=== PATIENT | female | born 1990 | race Caucasian/White ===

== ENCOUNTER → 2023-09-01 11:45 | Outpatient (REF) | payer BC, SELFPAY ==
[2023-09-01 12:55] LABS: % Basophils 0.4 % (0-2); % Eosinophils 0.6 % (0-6); % Immature Granulocytes 0.5 % (0-0.5); % Lymphocytes 7.8 % (20.5-51.1); % Monocytes 5.5 % (1.7-9.3); % Neutrophils 85.2 % (42.2-75.2); Absolute Basophils 0.1 10^3/uL (0-0.2); Absolute Eosinophils 0.1 10^3/uL (0-0.7); Absolute Immature Granulocytes 0.1 10^3/uL (0-0.05); Absolute Lymphocytes 1.1 10^3/uL (1.2-3.4); Absolute Monocytes 0.8 10^3/uL (0.1-0.6); Absolute Neutrophils 11.9 10^3/uL (1.4-6.5); Hematocrit 32.7 % (37.0-47.0); Hemoglobin 11.3 g/dL (12.0-16.0); Mean Corp Hgb Conc. 34.6 g/dL (33.0-37.0); Mean Corpuscular Hgb 27.3 pg (27.0-31.0); Mean Platelet Volume 11.7 fL (7.4-10.4); Nucleated Red Blood Cells % 0 %; Platelet Count 217 10^3/uL (130-400); Red Blood Cell Count 4.14 10^6/uL (4.20-5.40); Red Cell Dist. Width 14.7 % (11.5-14.5); White Blood Cell Count 13.9 10^3/uL (4.8-10.8)
[2023-09-01 18:50] LABS: Hepatitis B Surface Antigen Negative (Negative)
[2023-09-01 19:10] LABS: Hepatitis C Antibody Negative (Negative)
[2023-09-01 20:28] LABS: Rubella Positive
[2023-09-01 22:20] LABS: Urine Albumin Negative (Neg - Trace); Urine Bilirubin Negative (Negative); Urine Character Clear (Clear); Urine Color Yellow; Urine Glucose Negative (Negative); Urine Ketone 1+ (Negative); Urine Leukocyte Trace (Negative); Urine Nitrite Negative (Negative); Urine Occult Blood Negative (Negative); Urine Urobilinogen Negative (Neg - 1+); Urine pH 6.5 (5.0-9.0)
[2023-09-01 22:27] LABS: Urine Red Blood Cell None Seen /HPF (0-2); Urine Squamous Cell 0-2 /LPF (Few)
[2023-09-02 12:31] LABS: HIV Combo Negative (Negative)
[2023-09-02 16:20] LABS: Syphilis/T. pallidum Ab Reflex Negative (Negative)
== END ==
LOC: REG 11:45
PROVIDERS: ATTENDING PHYSICIAN Nurse Practitioner Family
DX: Z34.90 Encounter for supervision of normal pregnancy, unspecified, unspecified trimester (principal); Z31.438 Encounter for other genetic testing of female for procreative management
CPT/HCPCS: 36415; 80055; 81003; 81015; 84702; 86803; 86850; 86900; 86901; 87086; 87389

== ENCOUNTER 2023-10-05 23:49 | Emergency (ER) | payer OTHER, BC, SELFPAY ==
[2023-10-05 23:53] VITALS: BP 117/81
--- NOTE | 2023-10-06 00:36 | ED.GENMED ---
History of Present Illness
General
Chief Complaint: Blood and Body Fluid Exposure
Source: patient
Exam Limitations: none
Time Seen by Provider: 10/06/23 00:12
Travel History
Have you had any contact with someone who has COVID-19?: No
Do you have any symptoms of coronavirus? Fever > 100 degrees, chills, cough, shortness of breath, sore throat, loss of taste or smell, muscle aches, or headache?: No
History of Present Illness
History of Present Illness:
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 She admits that she is . She is concerned because she was changing a VIDYA drain and as she tried to reconnect it splashed in her eyes. She was wearing glasses but suspect some of it
did get in her eye. She was able to flush her eye with saline and was able to wash her face. Patient offers no current complaints. She states she is and just wanted to be checked out.
Past History
Past History
ED Past Medical History: None
ED Past Surgical History: None
Social History
Tobacco: Non-smoker
Phy Exam
Physical Exam
Physical Exam:
CONSTITUTIONAL Vital signs reviewed, Patient alert and oriented to person, place and time. Well-appearing
HEAD atraumatic, normocephalic.
EYES eyelids normal to inspection, Extraocular muscles intact, Conjunctiva normal, Sclera normal.
NECK normal range of motion, Trachea midline, no jugular venous distention.
RESP no respiratory distress
BACK No obvious deformities
UPPER EXTREMITY Gross Range of motion normal, gross motor strength normal
LOWER EXTREMITY Gross range of motion normal, Gross motor strength normal
NEURO Speech normal, No focal motor deficits include, [place] coma scale 15, Memory normal, Cranial Nerves intact to screening exam.
SKIN Skin warm, dry, and normal in color.
Course
Vital Signs
Initial and Last Documented VS:
Initial Vital Signs
Temp Pulse Resp BP Pulse Ox
98.4 F 71 18 117/81 98
10/05/23 23:53 10/05/23 23:53 10/05/23 23:53 10/05/23 23:53 10/05/23 23:53
Last Documented Vital Signs
Temp Pulse Resp BP Pulse Ox
98.4 F 71 18 117/81 98
10/05/23 23:53 10/05/23 23:53 10/05/23 23:53 10/05/23 23:53 10/05/23 23:53
MDM/Problems Addressed
MDM/Problems Addressed:
Body fluid exposure to mucosa only
*Pulse Oximetry
Patient hypoxic: no
*Critical Care Note
Total Time (30-74mins, 75-104mins- exclusive of procedures): Not Applicable
Data Reviewed
Source: patient
Prescriptions/Medications Considered But Not Given:
Considered antivirals but mucosal exposure only
Patient Management
Escalation/DeEscalation of care consider admission/obs:
Source patient was concerned for the patient. According to the RN, she is agreeable to be tested. I think is reasonable to test the source patient. Given the patient's and mucosal surface exposure, for now we will forego any antiviral
management.
ED Attending Note
-
Portions of this chart may have been created with voice recognition software.� Occasional wrong word or��sound alike� substitutions may have occurred due to the inherent limitations of voice recognition software.
Discharge Plan
Departure
Patient Disposition: Home (Routine Discharge)
Date of Disposition: 10/06/23
Time of Disposition: 00:36
Patient with high blood pressure during this ER visit?: No
Discharge Problem:
Exposure to blood or body fluid
Instructions: Blood or body fluid exposure
Prescriptions:
No Action
Vitamin Plus Low Iron 1 TABLET tablet
1 tab PO QPM 0RF
ibuprofen 600 MG tablet
600 mg PO Q4HPRN PRN (Reason: moderate pain/cramps) Qty: 90 0RF
Referrals:
Caitlyn Paz CRNP [Family Provider] -
Activity Restrictions/Additional Instructions:
Return for drainage from the eye, redness or any other concerns
Interventions
Interventions:
*Risk Screen - Suicide Last Done: 10/05/23 23:53
*General Assessment Last Done: 10/05/23 23:53
*Neglect/Abuse Screening Last Done: 10/05/23 23:53
ED- Fall Risk Assessment Last Done: 10/06/23 00:00
*ED COVID-19 Vaccine History Last Done: 10/05/23 23:53
ED-EENT Assessment Last Done: 10/05/23 23:59
ED-Skin Assessment Last Done: 10/05/23 23:59
== END 2023-10-06 00:50 | disposition home or self-care (01) ==
LOC: EMR 23:49
PROVIDERS: EMERGENCY PHYSICIAN Emergency Medicine; FAMILY PHYSICIAN Family Medicine
DX: O26.899 Other specified pregnancy related conditions, unspecified trimester (principal); Z3A.00 Weeks of gestation of pregnancy not specified; Z77.21 Contact with and (suspected) exposure to potentially hazardous body fluids; Y93.F9 Activity, other caregiving; Y92.89 Other specified places as the place of occurrence of the external cause; Y99.0 Civilian activity done for income or pay
CPT/HCPCS: 99282

== ENCOUNTER → 2023-10-06 07:59 | Outpatient (REF) | payer OTHER, SELFPAY ==
[2023-10-06 11:57] LABS: Hepatitis B Surface Antigen Negative (Negative)
[2023-10-06 12:07] LABS: HIV Combo Negative (Negative)
[2023-10-06 12:14] LABS: Hepatitis B Surface Antibody Positive; Hepatitis C Antibody Negative (Negative)
== END ==
LOC: OHS 07:59
PROVIDERS: ATTENDING PHYSICIAN Nurse Practitioner Adult Health
DX: Z57.8 Occupational exposure to other risk factors (principal)
CPT/HCPCS: 36415; 86706; 86803; 87340; 87389

== ENCOUNTER → 2023-10-14 07:04 | Outpatient (REF) | payer BC, SELFPAY | LOC: PNTC 07:04 | PROVIDERS: ATTENDING PHYSICIAN Obstetrics & Gynecology | DX: Z36.0 Encounter for antenatal screening for chromosomal anomalies (principal) | CPT/HCPCS: 36415; 76801; 76813 ==

== ENCOUNTER → 2023-12-12 07:34 | Outpatient (REF) | payer BC, SELFPAY ==
[2023-12-14 15:24] LABS: AFP Multiple of Median (MoM) 1.02; Dating LMP CONF by US; Maternal Age at Delivery 32.6 yr; Maternal Screen Interpretation Screen Neg; Maternal Weight 160.0 lbs.; Number of Fetuses Singleton; Patient's AFP Concentration 78 ng/mL
== END ==
LOC: REG 07:34
PROVIDERS: ATTENDING PHYSICIAN Obstetrics & Gynecology; FAMILY PHYSICIAN Family Medicine
DX: Z34.90 Encounter for supervision of normal pregnancy, unspecified, unspecified trimester (principal)
CPT/HCPCS: 36415; 82105

== ENCOUNTER → 2024-01-05 07:27 | Outpatient (REF) | payer BC, SELFPAY ==
[2024-01-05 09:29] LABS: % Basophils 0.7 % (0-2); % Immature Granulocytes 1.3 % (0-0.5); % Lymphocytes 17.6 % (20.5-51.1); % Monocytes 6.2 % (1.7-9.3); % Neutrophils 71.2 % (42.2-75.2); Absolute Basophils 0.1 10^3/uL (0-0.2); Absolute Eosinophils 0.3 10^3/uL (0-0.7); Absolute Immature Granulocytes 0.1 10^3/uL (0-0.05); Absolute Lymphocytes 1.6 10^3/uL (1.2-3.4); Absolute Monocytes 0.6 10^3/uL (0.1-0.6); Absolute Neutrophils 6.4 10^3/uL (1.4-6.5); Hematocrit 32.6 % (37.0-47.0); Hemoglobin 10.4 g/dL (12.0-16.0); Mean Corp Hgb Conc. 31.9 g/dL (33.0-37.0); Mean Corpuscular Hgb 27.2 pg (27.0-31.0); Mean Corpuscular Volume 85.3 fL (81.0-99.0); Mean Platelet Volume 11.6 fL (7.4-10.4); Nucleated Red Blood Cells % 0 %; Platelet Count 180 10^3/uL (130-400); Red Blood Cell Count 3.82 10^6/uL (4.20-5.40); Red Cell Dist. Width 13.3 % (11.5-14.5); White Blood Cell Count 8.9 10^3/uL (4.8-10.8)
[2024-01-05 10:29] LABS: 1 Hour after 50gm 154 mg/dl
[2024-01-06 15:45] LABS: Syphilis/T. pallidum Ab Reflex Negative (Negative)
== END ==
LOC: REG 07:27
PROVIDERS: ATTENDING PHYSICIAN Obstetrics & Gynecology; FAMILY PHYSICIAN Family Medicine
DX: Z13.1 Encounter for screening for diabetes mellitus (principal); Z34.82 Encounter for supervision of other normal pregnancy, second trimester
CPT/HCPCS: 36415; 82950; 85025; 86780

== ENCOUNTER → 2024-01-13 14:29 | Outpatient (REF) | payer BC, SELFPAY | LOC: PNTC 14:29 | PROVIDERS: ATTENDING PHYSICIAN Obstetrics & Gynecology | DX: O98.519 Other viral diseases complicating pregnancy, unspecified trimester (principal); U07.1 COVID-19; Z86.16 Personal history of COVID-19; Z34.82 Encounter for supervision of other normal pregnancy, second trimester | CPT/HCPCS: 36415; 76816; 82951 ==

== ENCOUNTER → 2024-01-28 09:55 | Outpatient (REF) | payer BC, SELFPAY | LOC: PNTC 09:55 | PROVIDERS: ATTENDING PHYSICIAN Obstetrics & Gynecology | DX: O36.0121 Maternal care for anti-D [Rh] antibodies, second trimester, fetus 1 (principal) | CPT/HCPCS: 36415; 86850; 86900; 86901; J2790 ==

== ENCOUNTER → 2024-02-23 07:53 | Outpatient (REF) | payer BC, SELFPAY | LOC: PNTC 07:53 | PROVIDERS: ATTENDING PHYSICIAN Obstetrics & Gynecology | DX: O98.519 Other viral diseases complicating pregnancy, unspecified trimester (principal); Z86.16 Personal history of COVID-19; Z34.82 Encounter for supervision of other normal pregnancy, second trimester | CPT/HCPCS: 76816 ==

== ENCOUNTER → 2024-04-07 11:52 | Outpatient (REF) | payer BC, SELFPAY | LOC: PNTC 11:52 | PROVIDERS: ATTENDING PHYSICIAN Student in an Organized Health Care Education/Training Program | DX: O36.8190 Decreased fetal movements, unspecified trimester, not applicable or unspecified (principal) | CPT/HCPCS: 59025; 76815 ==

== ENCOUNTER 2024-04-15 19:28 | Inpatient (IN) | payer BC, SELFPAY ==
[2024-04-15 19:34] VITALS: BMI 29.6
[2024-04-15 20:10] VITALS: BP 119/79
[2024-04-15 20:23] LABS: Hematocrit 30.4 % (37.0-47.0); Hemoglobin 9.9 g/dL (12.0-16.0); Mean Corp Hgb Conc. 32.6 g/dL (33.0-37.0); Mean Corpuscular Hgb 24.9 pg (27.0-31.0); Mean Corpuscular Volume 76.4 fL (81.0-99.0); Mean Platelet Volume 12.1 fL (7.4-10.4); Platelet Count 168 10^3/uL (130-400); Red Blood Cell Count 3.98 10^6/uL (4.20-5.40); Red Cell Dist. Width 14.8 % (11.5-14.5); White Blood Cell Count 12.7 10^3/uL (4.8-10.8)
[2024-04-15 20:50] LABS: Absolute Neutrophils -Man Diff 4.6 10^3/uL (1.4-6.5); Atypical Lymphocytes 13 %; Band Neutrophils 1 % (0-3); Lymphocytes 42 % (20-51); Monocytes 8 % (2-9); Normal RBC Morphology Yes; Platelets Checked Yes; Segmented Neutrophils 36 % (42-75); Total Cells Counted 100
[2024-04-15] MEDS: CYTOTEC 25 MICROGRAM VAG (21:09)
[2024-04-16] MEDS: LR 1000 IV ×3 (01:00→08:00)
[2024-04-16] MEDS: PITOCIN 30 UNITS/NSS 500 ML IV ×2 (05:37→09:27)
[2024-04-16] MEDS: SUBLIMAZE 100 MCG EPIDURAL (06:49)
[2024-04-16] MEDS: FENTANYL/BUPIVACAINE 100 EPIDURAL (06:50)
[2024-04-16] MEDS: MOTRIN 600 MG PO ×2 (10:49→20:29)
[2024-04-16] MEDS: SENOKOT-S 1 TABLET PO (10:50)
[2024-04-16] MEDS: TYLENOL 650 MG PO ×2 (10:50→20:29)
[2024-04-17 05:42] LABS: Hematocrit 29.1 % (37.0-47.0); Hemoglobin 9.6 g/dL (12.0-16.0)
[2024-04-17] MEDS: SENOKOT-S 1 TABLET PO (09:09)
[2024-04-17] MEDS: PRENATAL PLUS 1 TABLET PO (09:09)
[2024-04-17] MEDS: TYLENOL 650 MG PO (11:10)
[2024-04-17] MEDS: MOTRIN 600 MG PO (11:11)
[2024-04-17] MEDS: RHOGAM 300 MCG IM (12:06)
[2024-04-17] MEDS: PREPARATION H MAX STRENGTH PAIN RELIEF CREAM 1 APPLIC RECTAL (12:30)
[2024-04-20 11:18] LABS: Syphilis/T. pallidum Ab Reflex Negative (Negative)
== END 2024-04-17 14:02 | disposition home or self-care (01) | DRG 807 ==
LOC: LDRP 19:28
PROVIDERS: ADMITTING PHYSICIAN Student in an Organized Health Care Education/Training Program; ATTENDING PHYSICIAN Obstetrics & Gynecology; FAMILY PHYSICIAN Obstetrics & Gynecology
PROC: 0KQM0ZZ Repair Perineum Muscle, Open Approach (ICD-10-PCS; 2024-04-16)
PROC: 10E0XZZ Delivery of Products of Conception, External Approach (ICD-10-PCS; 2024-04-16)
PROC: 3E0234Z Introduction of Serum, Toxoid and Vaccine into Muscle, Percutaneous Approach (ICD-10-PCS; 2024-04-17)
DX: O62.3 Precipitate labor (principal); Z37.0 Single live birth; O70.1 Second degree perineal laceration during delivery; Z3A.39 39 weeks gestation of pregnancy; O90.81 Anemia of the puerperium; D64.9 Anemia, unspecified
CPT/HCPCS: 85014; 85018; 85025; 85461; 86780; 86850; 86870; 86900; 86901; J2790

== ENCOUNTER 2024-04-18 20:04 | Emergency (ER) | payer BC, SELFPAY ==
[2024-04-18 20:22] VITALS: BP 118/70
--- NOTE | 2024-04-18 20:35 | ED.GENMED ---
History of Present Illness
General
Chief Complaint: Bowel Problem
Source: patient
Exam Limitations: none
Time Seen by Provider: 04/18/24 20:16
History of Present Illness
History of Present Illness:
This is 33 year old female that comes in with c/o hemorrhoids. States that she delivered on the 4th and she has hemorrhoids before she left. States that she has been using Witch citlali, and Anusol and she feels that they are worse or she has a
prolapsed rectum. Denies any fever, chills, chest pain, SOB, abd pain, nausea, vomiting, diarrhea, headache, dizziness, urinary burning.
Past History
Past History
ED Past Medical History: Asthma, Hypercholesterolemia and Psychiatric (Anxiety, Depression)
ED Past Surgical History: None
Social History
Tobacco: Non-smoker
Alcohol: None
Personal:
Living: with family
Review of Systems
Review of Systems
All Other Systems: ROS reviewed and negative except as documented in HPI and ROS
Constitutional: Reports no symptoms; Denies fever or chills
EENT: Reports no symptoms
Respiratory: Reports no symptoms; Denies cough or trouble breathing
Cardiac: Reports no symptoms; Denies chest pain
ABD/GI: Reports other (external hemorrhoids); Denies abdominal pain, nausea, vomiting or diarrhea
: Reports no symptoms; Denies dysuria, frequency or urgency
Musculoskeletal: Reports no symptoms
Skin: Reports no symptoms
Neurological: Reports no symptoms; Denies dizzy or headache
Psychiatric: Reports no symptoms
Phy Exam
General Physical Exam
General Presentation: well appearing and no apparent distress
General age: appears stated age
General Skin: warm and dry
General Habitus: normal
General Mental: alert
General Hydration: appears well hydrated
ENT Exam
ENT Exam: TM's normal, pharynx normal and neck supple
Eye Exam
Eye Exam: EOMI
Cardiovascular Exam
Cardiovascular Exam: regular rate/rhythm, no edema, no murmur and normal peripheral pulses
Pulmonary Exam
Pulmonary Exam: lungs clear, no respiratory distress, no rales, chest non tender, no crackles, no rhonchi, no wheezing and no cough
Gastrointestinal Exam
Gastrointestinal Exam: other (Large external hemorrhoid's noted )
Musculoskeletal Exam
Musculoskeletal Exam: full ROM and no edema
Skin Exam
Skin Exam: normal color, warm/dry, no rash and no petechia
Psychiatric Exam
Psychiatric Exam: normal mood/affect
Course
Vital Signs
Initial and Last Documented VS:
Initial Vital Signs
Temp Pulse Resp BP Pulse Ox
98.1 F 73 18 118/70 98
04/18/24 20:22 04/18/24 20:22 04/18/24 20:22 04/18/24 20:22 04/18/24 20:22
Last Documented Vital Signs
Temp Pulse Resp BP Pulse Ox
98.1 F 73 18 118/70 98
04/18/24 20:22 04/18/24 20:22 04/18/24 20:22 04/18/24 20:22 04/18/24 20:22
MDM/Problems Addressed
Differential Diagnosis Includes:
hemorrhoids,
MDM/Problems Addressed:
This is a 33 year old female that comes in with c/o rectal pain due to Hemorrhoids.
Explained to patient that she needs to do Sitz baths 3-4 times daily for 20min. Patient to also get a Donut to sit on and will give patient Colorectal for follow up. Will have her continue with TUCKS.
Chronic conditions affecting care:
Hemorrhoids
Acute Exacerbation and/or Progression of Chronic Illness:
Hemorrhoids
*Pulse Oximetry
Patient hypoxic: no
*EKG
Interpreted by ED Provider?: NA
Rate: EKG- N/A
*Surgical Tech Interpretation
Rate: Surgical Tech- N/A
*Critical Care Note
Total Time (30-74mins, 75-104mins- exclusive of procedures): Not Applicable
ED Attending Note
-
Portions of this chart may have been created with voice recognition software.� Occasional wrong word or��sound alike� substitutions may have occurred due to the inherent limitations of voice recognition software.
Discharge Plan
Departure
Patient Disposition: Home (Routine Discharge)
Date of Disposition: 04/18/24
Time of Disposition: 20:44
Patient with high blood pressure during this ER visit?: No
Condition: Good
Covid-19: Not Applicable
Discharge Problem:
Hemorrhoids
Instructions: How to Do a Sitz Bath, Hemorrhoids ED
Prescriptions:
New
hydrocortisone acetate [Anucort-HC] 25 mg suppository
25 mg [place] BID Qty: 24 0RF
No Action
Vitamin Plus Low Iron 1 TABLET tablet
1 tab PO QPM 0RF
acetaminophen 325 mg Tablet
650 mg PO Q4HPRN PRN (Reason: mild pain) Qty: 0 0RF
sennosides-docusate sodium 8.6-50 mg Tablet
1 tab PO DAILYPRN PRN (Reason: constipation) Qty: 0 0RF
ibuprofen 600 mg Tablet
600 mg PO Q6HPRN PRN (Reason: moderate pain/cramps) Qty: 40 0RF
Referrals:
Kenton Waller MD [Active] - Follow up in 2-3 days
Activity Restrictions/Additional Instructions:
As discussed, this is external hemorrhoids. Please do sitz baths 3-4 times daily for 20 min. You have also had a Prescription sent to your Pharmacy for Anusol suppository that will help decrease the pain and swelling. Please follow up with the
Colorectal specialist for further evaluation. Please increase your water intake to 8-8oz glasses daily. You may also use Colace to help keep the stool soft so there is no straining. You may also wish to buy a Donut to sit on as this decreases the
pressure on the rectum. You may also use Tylenol 1000mg every 6 hours and ibuprofen 600mg every 6 hours with food for pain. IF YOU HAVE INCREASED OR CHANGING PAIN, OR YOU HAVE ANY OTHER CONCERNS PLEASE RETURN TO THE EMERGENCY ROOM .
Interventions
Interventions:
*Risk Screen - Suicide Last Done: 04/18/24 20:22
*General Assessment Last Done: 04/18/24 20:22
*Neglect/Abuse Screening Last Done: 04/18/24 20:22
ED- Fall Risk Assessment Last Done: 04/18/24 20:28
*ED COVID-19 Vaccine History Last Done: 04/18/24 20:28
YC-Ioxlhe-Jntxcroekt Assessment Last Done: 04/18/24 20:28
Discharge Date and Time
Print Language: PASHTO
== END 2024-04-18 21:18 | disposition home or self-care (01) ==
LOC: EMR 20:04
PROVIDERS: EMERGENCY PHYSICIAN Student in an Organized Health Care Education/Training Program; FAMILY PHYSICIAN Family Medicine
DX: K64.9 Unspecified hemorrhoids (principal)
CPT/HCPCS: 99282

== ENCOUNTER 2024-07-05 07:24 | Outpatient (RCR) | payer BC, SELFPAY | END 2024-07-05 23:59 | disposition home or self-care (01) | LOC: RPT 07:24 | PROVIDERS: ATTENDING PHYSICIAN Obstetrics & Gynecology | DX: N39.3 Stress incontinence (female) (male) (principal); N39.41 Urge incontinence; K59.00 Constipation, unspecified; Z73.6 Limitation of activities due to disability | CPT/HCPCS: 97014; 97112; 97140; 97162; 97530 ==

== ENCOUNTER 2024-08-09 07:04 | Outpatient (RCR) | payer BC, SELFPAY | END 2024-08-09 23:59 | disposition home or self-care (01) | LOC: RPT 07:04 | PROVIDERS: ATTENDING PHYSICIAN Obstetrics & Gynecology | DX: N39.3 Stress incontinence (female) (male) (principal); N39.41 Urge incontinence; K59.00 Constipation, unspecified; Z73.6 Limitation of activities due to disability | CPT/HCPCS: 97140; 97530 ==

== ENCOUNTER 2024-08-23 06:54 | Outpatient (RCR) | payer BC, SELFPAY | END 2024-09-06 23:59 | disposition home or self-care (01) | LOC: RPT 06:54 | PROVIDERS: ATTENDING PHYSICIAN Obstetrics & Gynecology | DX: N39.3 Stress incontinence (female) (male) (principal); N39.41 Urge incontinence; K59.00 Constipation, unspecified; Z73.6 Limitation of activities due to disability | CPT/HCPCS: 97014; 97112; 97140; 97530 ==

== ENCOUNTER 2024-10-04 09:50 | Outpatient (RCR) | payer BC, SELFPAY | END 2024-10-04 23:59 | disposition home or self-care (01) | LOC: RPT 09:50 | PROVIDERS: ATTENDING PHYSICIAN Obstetrics & Gynecology | DX: N39.3 Stress incontinence (female) (male) (principal); N39.41 Urge incontinence; K59.00 Constipation, unspecified; Z73.6 Limitation of activities due to disability | CPT/HCPCS: 97014; 97112; 97140; 97530 ==

== ENCOUNTER → 2024-10-27 07:32 | Outpatient (REF) | payer BC, SELFPAY ==
[2024-10-27 08:50] LABS: % Immature Granulocytes 0.3 % (0-0.5); % Lymphocytes 43.2 % (20.5-51.1); % Monocytes 6.5 % (1.7-9.3); Absolute Basophils 0.1 10^3/uL (0-0.2); Absolute Eosinophils 0.3 10^3/uL (0-0.7); Absolute Lymphocytes 2.7 10^3/uL (1.2-3.4); Absolute Monocytes 0.4 10^3/uL (0.1-0.6); Absolute Neutrophils 2.7 10^3/uL (1.4-6.5); Hematocrit 38.7 % (37.0-47.0); Hemoglobin 12.6 g/dL (12.0-16.0); Mean Corp Hgb Conc. 32.6 g/dL (33.0-37.0); Mean Corpuscular Hgb 26.5 pg (27.0-31.0); Mean Corpuscular Volume 81.3 fL (81.0-99.0); Mean Platelet Volume 11.8 fL (7.4-10.4); Nucleated Red Blood Cells % 0 %; Platelet Count 158 10^3/uL (130-400); Red Blood Cell Count 4.76 10^6/uL (4.20-5.40); Red Cell Dist. Width 12.7 % (11.5-14.5); White Blood Cell Count 6.1 10^3/uL (4.8-10.8)
[2024-10-27 09:49] LABS: ALT (SGPT) 15 U/L (0-35); AST (SGOT) 20 U/L (14-36); Albumin 4.2 g/dl (3.5-5.0); Alkaline Phosphatase 85 U/L (38-126); Blood Urea Nitrogen 24 mg/dl (7-17); Calcium 9.7 mg/dl (8.4-10.2); Carbon Dioxide 29 mmol/L (22-30); Chloride 104 mmol/L (98-107); Glucose 75 mg/dl (70-99); HDL Cholesterol 88 mg/dl; LDL Cholesterol, Calculated 93 mg/dl; Potassium 4.1 mmol/L (3.5-5.1); Sodium 140 mmol/L (135-145); Total Bilirubin 0.5 mg/dl (0.2-1.3); Total Cholesterol 190 mg/dl (50-199); Total Protein 6.9 g/dl (6.3-8.2); Triglyceride 49 mg/dl (10-149); Very Low Density Lipoprotein 9 mg/dl (0-30); eGFR > 60.00
[2024-10-27 10:16] LABS: Free T4 1.41 ng/dl (0.78-2.19)
[2024-10-27 10:22] LABS: Glycohemoglobin (HgbA1c) 5.3 % (4.0-5.6)
== END ==
LOC: REG 07:32
DX: E78.5 Hyperlipidemia, unspecified (principal); D50.9 Iron deficiency anemia, unspecified; R53.83 Other fatigue
CPT/HCPCS: 36415; 80053; 80061; 83036; 84439; 84443; 85025

== ENCOUNTER 2025-05-08 23:25 | Emergency (ER) | payer BC, SELFPAY ==
[2025-05-08 23:27] VITALS: BP 120/82
[2025-05-08 23:39] VITALS: BMI 25.8
--- NOTE | 2025-05-09 00:33 | ED.GENMED ---
History of Present Illness
General
Chief Complaint: Blood and Body Fluid Exposure
Source: patient
Exam Limitations: none
Time Seen by Provider: 05/09/25 00:26
History of Present Illness
History of Present Illness:
See MDM
Past History
Past History
ED Past Medical History: Asthma, Hypercholesterolemia and Psychiatric (Anxiety, Depression)
ED Past Surgical History: None
Social History
Tobacco: Non-smoker
Alcohol: None
Personal:
Living: with family
Phy Exam
Physical Exam
Physical Exam:
See MDM
Course
Orders/Labs/Results
Orders:
Orders
05/09/25 00:31
Pt has had a significant HIV exposure? Routine
HIV Exposure is significant?: No
HIV Combo Urgent
Hepatitis B Surface Antibody Urgent
Hepatitis B Surface Antigen Urgent
Hepatitis C Antibody Urgent
Vital Signs
Initial and Last Documented VS:
Initial Vital Signs
Temp Pulse Resp BP Pulse Ox
97.8 F 84 18 120/82 98
05/08/25 23:27 05/08/25 23:27 05/08/25 23:27 05/08/25 23:27 05/08/25 23:27
Last Documented Vital Signs
Temp Pulse Resp BP Pulse Ox
97.8 F 84 18 120/82 98
05/08/25 23:27 05/08/25 23:27 05/08/25 23:27 05/08/25 23:27 05/08/25 23:27
MDM/Problems Addressed
Differential Diagnosis Includes:
Note:
CHIEF COMPLAINT(S)
Needle stick injury to the left index finger.
HISTORY OF PRESENT ILLNESS
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 The needle was small gauge, resulting in a minimal puncture wound. She reports minimal bleeding and
immediate application of alcohol to the area. The incident occurred when she felt like she grazed the needle against her finger while holding it. There are no additional symptoms or complaints.
PHYSICAL EXAM
General: Alert, no acute distress.
Skin: Warm, dry.
Head: Normocephalic, atraumatic
Neck: Appears supple, trachea midline.
Eyes, Ears, Nose, Mouth, and Throat: Moist mucous membranes
Cardiovascular: No signs of cyanosis
Respiratory: Respirations are non-labored.
Abdomen: Non-distended
Musculoskeletal: Very minimal puncture wound to the left index finger.
Neurological: No focal neurological deficit observed.
Psychiatric: Cooperative, appropriate mood and affect.
PLAN
- Conduct blood work to assess for potential exposure to hepatitis and HIV.
- Consider prophylactic medication for bloodborne pathogen exposure.
- Proceed with discharge once lab work is complete.
SUMMARY OF ENCOUNTER
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 Due to the risk of exposure to bloodborne pathogens, blood work will be conducted to assess for hepatitis and HIV. The patient
is to be discharged following completion of the lab work.
DISPOSITION
Discharge
MEDICAL DECISION MAKING
- Number and Complexity of Problems Addressed:
- Blood exposure risk due to needle stick injury.
- Differential Diagnosis includes, in no particular order and is not limited to:
1. Acute stress reaction
2. Exposure to bloodborne pathogens
3. Localized infection at injury site
4. Hepatitis B exposure
5. Hepatitis C exposure
6. HIV exposure
7. Tetanus exposure
8. Contact dermatitis
9. Risk of seroconversion
10. Local inflammation secondary to needle puncture
- Data:
- Category 1: Blood work ordered for assessment of exposure to bloodborne pathogens.
- Risk:
- Prescription medication for prophylaxis against bloodborne pathogens considered.
DIAGNOSIS
- Needle stick injury with potential bloodborne pathogen exposure [ICD-10 code: Z20.2]
- Occupational exposure to potentially infectious material [ICD-10 code: Z57.9]
Disposition:
SUMMARY OF ENCOUNTER
The patient, a nurse, presented with a small needle stick injury to her left index finger. The injury occurred during a blood exposure episode while administering medication to a patient. There is a concern for potential exposure to bloodborne
pathogens like hepatitis B, hepatitis C, and HIV. Blood work has been ordered to assess this exposure. Despite being offered prophylactic medication, the patient, who is currently , declined the medication both due to potential
intolerance and personal choice. The source patient is expected to provide blood work as well.
DISPOSITION
Discharge
PLAN
Conduct blood work to assess potential exposure to hepatitis B, hepatitis C, and HIV. Discharge after lab work is completed, with plans to follow up on lab results.
MEDICATION RECONCILIATION
Prophylactic medication for potential bloodborne pathogen exposure was considered but ultimately declined by the patient.
MEDICAL DECISION MAKING
- Complexity of Data Reviewed:
- Blood exposure risk due to needle stick injury.
- Differential Diagnosis includes:
1. Acute stress reaction
2. Exposure to bloodborne pathogens
3. Localized infection at injury site
4. Hepatitis B exposure
5. Hepatitis C exposure
6. HIV exposure
7. Tetanus exposure
8. Contact dermatitis
9. Risk of seroconversion
10. Local inflammation secondary to needle puncture
- Data:
Category 1: Blood work ordered for assessment of exposure to bloodborne pathogens.
- Risk: Prescription drug management was considered but declined by the patient. Discharge was chosen as the patients symptoms were well controlled, and she is reliable for follow-up.
DIAGNOSIS
- Needle stick injury with potential bloodborne pathogen exposure [ICD-10 code: Z20.2]
- Occupational exposure to potentially infectious material [ICD-10 code: Z57.9]
*Pulse Oximetry
SaO2: 98
Oxygen Mode of Delivery: Room air
Patient hypoxic: no
*Critical Care Note
Total Time (30-74mins, 75-104mins- exclusive of procedures): Not Applicable
ED Attending Note
-
Portions of this chart may have been created with voice recognition software.� Occasional wrong word or��sound alike� substitutions may have occurred due to the inherent limitations of voice recognition software.
Discharge Plan
Departure
Patient Disposition: Home (Routine Discharge)
Date of Disposition: 05/09/25
Time of Disposition: 00:34
Patient with high blood pressure during this ER visit?: No
Discharge Problem:
Employee exposure to blood
Prescriptions:
No Action
Vitamin Plus Low Iron 1 TABLET tablet
1 tab PO QPM 0RF
acetaminophen 325 mg Tablet
650 mg PO Q4HPRN PRN (Reason: mild pain) Qty: 0 0RF
sennosides-docusate sodium 8.6-50 mg Tablet
1 tab PO DAILYPRN PRN (Reason: constipation) Qty: 0 0RF
ibuprofen 600 mg Tablet
600 mg PO Q6HPRN PRN (Reason: moderate pain/cramps) Qty: 40 0RF
hydrocortisone acetate [Anucort-HC] 25 mg suppository
25 mg [place] BID Qty: 24 0RF
Referrals:
GOLDMAN,SHARI [Other]
Stand Alone Forms: Bl/Fluid Consent/Declination, Blood Body/Fluid Exposure
Interventions
Interventions:
*Risk Screen - Suicide Last Done: 05/08/25 23:27
*General Assessment Last Done: 05/08/25 23:39
*Neglect/Abuse Screening Last Done: 05/08/25 23:27
*ED- Fall Risk Assessment Last Done: 05/08/25 23:39
*ED COVID-19 Vaccine History Last Done: 05/08/25 23:39
*ED Influenza Vaccine History Last Done: 05/08/25 23:39
ED-EENT Assessment Last Done: 05/08/25 23:40
ED-Skin Assessment Last Done: 05/08/25 23:41
Discharge Date and Time
Print Language: ESTONIAN
[2025-05-09 02:54] LABS: Hepatitis B Surface Antigen Negative (Negative)
[2025-05-09 03:11] LABS: Hepatitis C Antibody Negative (Negative)
== END 2025-05-09 01:12 | disposition home or self-care (01) ==
LOC: EMR 23:25
PROVIDERS: EMERGENCY PHYSICIAN Student in an Organized Health Care Education/Training Program
DX: S61.231A Puncture wound without foreign body of left index finger without damage to nail, initial encounter (principal); Z77.21 Contact with and (suspected) exposure to potentially hazardous body fluids; Z57.8 Occupational exposure to other risk factors; W46.1XXA Contact with contaminated hypodermic needle, initial encounter; Y93.F9 Activity, other caregiving; Y92.89 Other specified places as the place of occurrence of the external cause; Y99.0 Civilian activity done for income or pay; J45.909 Unspecified asthma, uncomplicated; E78.00 Pure hypercholesterolemia, unspecified; F41.9 Anxiety disorder, unspecified; F32.A Depression, unspecified; Z88.1 Allergy status to other antibiotic agents; Z88.0 Allergy status to penicillin
CPT/HCPCS: 99283; 86706; 86803; 87340; 87389

== ENCOUNTER 2025-06-21 06:27 | Day surgery (SDC) | payer BC, SELFPAY | END 2025-06-21 15:34 | disposition home or self-care (01) | LOC: GI 06:27 | PROVIDERS: ATTENDING PHYSICIAN Internal Medicine Gastroenterology | DX: K62.5 Hemorrhage of anus and rectum (principal); R19.4 Change in bowel habit; K64.8 Other hemorrhoids; R10.13 Epigastric pain; K44.9 Diaphragmatic hernia without obstruction or gangrene; K31.89 Other diseases of stomach and duodenum | CPT/HCPCS: 43239; 45378; 88305; 88342 ==